=== PATIENT | male | born 1960 ===

== ENCOUNTER 2018-01-07 12:11 | Observation (INO) | payer SELFPAY ==
[2018-01-07] MEDS ORDERED: ASPIRIN 81 MG TABLET, CHEWABLE PO ONE (13:08)
--- NOTE | 2018-01-07 13:09 | ER Document Report ---
ED Medical Screen (RME) - General Chief Complaint: Chest Pain Stated Complaint: CHEST PAIN Time Seen by Provider: 01/07/18 13:05 - HPI Notes: 01/07/18 13:09 Patient is a 57-year-old male that presents to the emergency department for chief complaint of chest pain. Patient reports right-sided chest pain that started this morning. The pain is sharp and nonradiating. Worse with deep inspiration. He has a right-sided PICC line and is receiving antibiotics for a foot infection for the last 2 weeks. ROS: GENERAL: Denies fever of chills CV: chest pain PHYSICAL EXAMINATION: GENERAL: Well-appearing, well-nourished and in no acute distress. HEAD: Atraumatic, normocephalic. EYES: Pupils equal round extraocular movements intact, conjunctiva are normal. ENT: Nares patent NECK: Normal range of motion LUNGS: No respiratory distress Musculoskeletal: Normal range of motion NEUROLOGICAL: Normal speech, normal gait. PSYCH: Normal mood, normal affect. MDM: Patient seen and examined for rapid initial assessment. Vital signs reviewed. A comprehensive ED assessment and evaluation of the patient, analysis of test results and completion of the medical decision making process will be conducted by additional ED providers. - Related Data Allergies/Adverse Reactions: No Known Allergies Allergy (Verified 01/07/18 12:20) Past Medical History - Social History Chew tobacco use (# tins/day): No Frequency of alcohol use: None Drug Abuse: None Renal/ Medical History: Denies: Hx Peritoneal Dialysis Physical Exam - Vital signs Vitals: Temp Pulse Resp BP Pulse Ox 98.7 F 81 18 136/73 H 100 01/07/18 12:19 01/07/18 12:19 01/07/18 12:19 01/07/18 12:01/07/18 12:19 Course - Vital Signs Vital signs: Temp Pulse Resp BP Pulse Ox 98.7 F 81 18 136/73 H 100 01/07/18 12:19 01/07/18 12:19 01/07/18 12:19 01/07/18 12:19 01/07/18 12:19 Doctor's Discharge - Discharge Referrals: LOCALMD,NO [Primary Care Provider] - Follow up as needed
[2018-01-07 13:56] LABS: ABSOLUTE BASOPHILS # (AUTO) 0.1 10^3/uL (0.0-0.2); ABSOLUTE EOSINOPHILS # (AUTO) 0.2 10^3/uL (0.0-0.6); ABSOLUTE LYMPHOCYTES (AUTO) 1.5 10^3/uL (0.5-4.7); ABSOLUTE MONOCYTES (AUTO) 0.6 10^3/uL (0.1-1.4); ABSOLUTE NEUT (AUTO) 6.1 10^3/uL (1.7-8.2); BASOPHILS % (AUTO) 0.6 % (0-2); HEMATOCRIT 28.6 % (37.9-51.0); HEMOGLOBIN 9.9 g/dL (13.5-17.0); LYMPHOCYTES % (AUTO) 17.4 % (13-45); MEAN CORPUSCULAR HEMOGLOBIN 28.4 pg (27.0-33.4); MEAN CORPUSCULAR HGB CONC 34.6 g/dL (32.0-36.0); MEAN CORPUSCULAR VOLUME 82 fl (80-97); MONOCYTES % (AUTO) 6.9 % (3-13); PLATELET COUNT 210 10^3/uL (150-450); RED BLOOD COUNT 3.48 10^6/uL (4.35-5.55); RED CELL DISTRIBUTION WIDTH 15.7 % (11.5-14.0); SEGMENTED NEUTROPHILS % (AUTO) 73.1 % (42-78); TOTAL CELLS COUNTED % (AUTO) 100 %; WHITE BLOOD COUNT 8.4 10^3/uL (4.0-10.5)
[2018-01-07 14:14] LABS: ALANINE AMINOTRANSFERASE 19 U/L (21-72); ALBUMIN 3.6 g/dL (3.5-5.0); ALKALINE PHOSPHATASE 98 U/L (38-126); ANION GAP 11 (5-19); ASPARTATE AMINO TRANSFERASE 10 U/L (17-59); BILIRUBIN,DIRECT 0.3 mg/dL (0.0-0.4); BILIRUBIN,TOTAL 0.5 mg/dL (0.2-1.3); BLOOD UREA NITROGEN 15 mg/dL (7-20); CALCIUM 8.9 mg/dL (8.4-10.2); CARBON DIOXIDE 25 mmol/L (22-30); CHLORIDE 102 mmol/L (98-107); GLUCOSE 126 mg/dL (75-110); POTASSIUM 4.5 mmol/L (3.6-5.0); TOTAL PROTEIN 6.5 g/dL (6.3-8.2)
--- NOTE | 2018-01-07 14:28 | RADIOLOGY REPORT (SQ) ---
EXAM DESCRIPTION: CHEST SINGLE VIEW COMPLETED DATE/TIME: 01/07/2018 2:09 pm REASON FOR STUDY: chest pain COMPARISON: CTA chest 01/07/2018 EXAM PARAMETERS: NUMBER OF VIEWS: One view. TECHNIQUE: Single frontal radiographic view of the chest acquired. RADIATION DOSE: NA LIMITATIONS: None. FINDINGS: LUNGS AND PLEURA: Somewhat linear opacification is present bilateral in the lower lobes. MEDIASTINUM AND HILAR STRUCTURES: No masses. Contour normal. HEART AND VASCULAR STRUCTURES: Heart size is borderline. There is no pulmonary edema. BONES: No acute findings. HARDWARE: None in the chest. OTHER: No other significant finding. IMPRESSION: There appears to be subsegmental atelectasis in the lower lobes. Cannot entirely exclud e a right lower lobe pneumonia. TECHNICAL DOCUMENTATION: JOB ID: [id number] [employer]- All Rights Reserved Reading location - IP/workstation name: [email or web address]
--- NOTE | 2018-01-07 14:31 | RADIOLOGY REPORT (SQ) ---
EXAM DESCRIPTION: CTA CHEST COMPLETED DATE/TIME: 01/07/2018 2:01 pm REASON FOR STUDY: chest pain COMPARISON: None. TECHNIQUE: CT scan of the chest performed using helical scanning technique with dynamic intravenous contrast injection. Images reviewed with lung, soft tissue and bone windows. Reconstructed coronal and sagittal MPR images reviewed. Additional 3 dimensional post-processing performed to develop Maximal Intensity Projection images (AZ P). All images stored on PACS. All CT scanners at this facility use dose modulation, iterative reconstruction, and/or weight based d osing when appropriate to reduce radiation dose to as low as reasonably achievable (ALARA). [facility]: Dose Right [facility]: CareDose [facility]: Dose Right [facility]: Teradose 4D [facility]: ViralNinjas CONTRAST TYPE AND DOSE: contrast/concentration: Isovue 350.00 mg/ml; Total Contrast Delivered: 84.0 ml; Total Saline Delivered: 92.0 ml Contrast bolus optimized for the pulmonary arteries. Not diagnostic for the aorta. RENAL FUNCTION: Creatinine - 0.64 BUN=16 RADIATION DOSE: CT Rad equipment meets quality standard of care and radiation dose reduction techniq ues were employed. CTDIvol: 27.7 - 33.1 mGy. DLP: 972 mGy-cm. . LIMITATIONS: None. FINDINGS: LUNGS AND PLEURA: Bilateral lower lobes, slightly more so on the right and right middle l obe airspace disease. Bilateral small right pleural effusion. No masses, infiltrates, or pneumothor ax. No pleural effusions or pleural calcifications. AORTA AND GREAT VESSELS: Inadequate opacification of the aorta and great vessel. The right brachioc ephalic and left common carotid artery share a common origin off of the aortic arch, normal anatomic variant. HEART: No pericardial effusion. No significant coronary artery calcifications. PULMONARY ARTERIES: Fairly extensive thrombus within the right descending pulmonary artery with occl usion identified. Occlusive thrombi in the right middle and lower lobe segmental/subsegmental arteri es. No evidence of saddle pulmonary emboli. HILAR AND MEDIASTINAL STRUCTURES: No identified masses or abnormal nodes. HARDWARE: None in the chest. UPPER ABDOMEN: Hepatosplenomegaly is suggested. Mild nodular thickening of the left adrenal gland. Limited exam. THYROID AND OTHER SOFT TISSUES: No masses. No adenopathy. BONES: No acute or significant finding. 3D MIPS: Confirm above findings. OTHER: No other significant finding. IMPRESSION: 1. Fairly extensive occlusive thrombus within the right descending pulmonary artery, ri ght middle lobe and right middle lobe segmental/subsegmental arteries. These findings represent fair ly extensive pulmonary emboli. 2. Bilateral lower lobe and right middle lobe airspace disease may represent infiltrate/atelectasis. Small right pleural effusion. 3. Additional findings as above. COMMENT: 1. The results of this examination were discussed with emergency department provider on 01/2018 at 14:12 hours. Quality ID # [id number]: Final reports with documentation of one or more dose reduction techniques (e.g., Au tomated exposure control, adjustment of the mA and/or kV according to patient size, use of iterative reconstruction technique) TECHNICAL DOCUMENTATION: JOB ID: [id number] [employer]- All Rights Reserved Reading location - IP/workstation name: [email or web address]
--- NOTE | 2018-01-07 14:44 | ER Document Report ---
ED General - General Chief Complaint: Chest Pain Stated Complaint: CHEST PAIN Time Seen by Provider: 01/07/18 13:05 - HPI Patient complains to provider of: Right-sided chest pain Notes: Patient states recently to the area approximately 3 months ago has history of diabetes hypertension diabetes is poorly controlled recently had surgery at [facility] with application of his toe currently has a wound VAC in place on the right foot. Patient states increased chest pain on the right side earlier this morning with difficulty taking a full deep breath. Patient denies any fevers chills nausea vomiting diarrhea denies any left-sided chest pain. Denies a history of PE DVT in the past. Patient currently has a PICC line in his right arm that he is receiving antibiotics for the foot infection - Related Data Allergies/Adverse Reactions: No Known Allergies Allergy (Verified 01/07/18 12:20) Past Medical History - Social History Smoking Status: Never Smoker Chew tobacco use (# tins/day): No Frequency of alcohol use: None Drug Abuse: None Family History: Reviewed & Not Pertinent Patient has suicidal ideation: No Patient has homicidal ideation: No Renal/ Medical History: Denies: Hx Peritoneal Dialysis Review of Systems - Review of Systems Constitutional: No symptoms reported EENT: No symptoms reported Cardiovascular: Chest pain - Right-sided chest pain Respiratory: No symptoms reported Gastrointestinal: No symptoms reported Genitourinary: No symptoms reported Male Genitourinary: No symptoms reported Musculoskeletal: No symptoms reported, Other Skin: No symptoms reported Hematologic/Lymphatic: No symptoms reported Neurological/Psychological: No symptoms reported -: Yes All other systems reviewed and negative Physical Exam - Vital signs Vitals: Temp Pulse Resp BP Pulse Ox 98.7 F 81 18 136/73 H 100 01/07/18 12:19 01/07/18 12:19 01/07/18 12:19 01/07/18 12:19 01/07/18 12:19 Interpretation: Normal - General General appearance: Appears well, Alert - HEENT Head: Normocephalic, Atraumatic Eyes: Normal Pupils: PERRL - Respiratory Respiratory status: No respiratory distress Chest status: Nontender Breath sounds: Normal Chest palpation: Normal - Cardiovascular Rhythm: Regular Heart sounds: Normal auscultation Murmur: No - Abdominal Inspection: Normal Distension: No distension Bowel sounds: Normal Tenderness: Nontender Organomegaly: No organomegaly - Back Back: Normal, Nontender - Extremities General upper extremity: Normal inspection, Nontender, Normal color, Normal ROM , Normal temperature General lower extremity: Normal color, Normal ROM, Normal temperature, Normal weight bearing. No: Normal inspection - Patient's right foot is currently managed with a wound VAC in place. There is swelling of the right leg greater on the right and left with 1-2+ pitting edema, Alma Rosa's sign - Neurological Neuro grossly intact: Yes Cognition: Normal Orientation: AAOx4 Jami Coma Scale Eye Opening: Spontaneous Jami Coma Scale Verbal: Oriented Jami Coma Scale Motor: Obeys Commands Jami Coma Scale Total: 15 Speech: Normal Motor strength normal: LUE, RUE, LLE, RLE Sensory: Normal - Psychological Associated symptoms: Normal affect, Normal mood - Skin Skin Temperature: Warm Skin Moisture: Dry Skin Color: Normal Course - Re-evaluation Re-evalutation: 01/07/18 21:25 CAT scan shows right-sided pulmonary embolism patient otherwise has stable vital signs patient was given low-dose Lovenox course was discussed with hospitalist will admit for further evaluation. - Vital Signs Vital signs: Temp Pulse Resp BP Pulse Ox 98.7 F 81 10 L 128/114 H 97 01/07/18 12:19 01/07/18 12:19 01/07/18 19:01 01/07/18 19:00 01/07/18 19:01 - Laboratory Result Diagrams: 01/07/18 13:20 01/07/18 13:20 Laboratory results interpreted by me: 01/07/18 01/07/18 01/07/18 13:20 13:20 13:20 RBC 3.48 L Hgb 9.9 L Hct 28.6 L RDW 15.7 H APTT 39.3 H Glucose 126 H AST 10 L ALT 19 L Critical Care Note - Critical Care Note Total time excluding time spent on procedures (mins): 35 Comments: Multiple evaluation patient with PE Discharge - Discharge Clinical Impression: Pulmonary embolism Qualifiers: Pulmonary embolism type: other Chronicity: acute Acute cor pulmonale presence: without acute cor pulmonale Qualified Code(s): I26.99 - Other pulmonary embolism without acute cor pulmonale Osteomyelitis Qualifiers: Osteomyelitis type: unspecified type Osteomyelitis location: foot Laterality: right Qualified Code(s): M86.9 - Osteomyelitis, unspecified Condition: Good Disposition: ADMITTED INPATIENT Admitting Provider: Michael García/Tyron Unit Admitted: IMCU
[2018-01-07] MEDS: ENOXAPARIN SODIUM INJ 120 MG/0.8 ML DISP.SYRIN SUBCUT SCH ×2 (15:47→22:19)
[2018-01-07 15:54] LABS: INTERNATIONAL RATION (INR) 0.98; PROTHROMBIN TIME 13.5 SEC (11.4-15.4)
[2018-01-07 15:55] LABS: PARTIAL THROMBOPLASTIN TIME 39.3 SEC (23.5-35.8)
[2018-01-07] MEDS ORDERED: ACETAMINOPHEN 325 MG TABLET PO PRN (16:45)
[2018-01-07] MEDS ORDERED: MORPHINE SULFATE 10 MG/ML INJ IV PRN (16:45)
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
[2018-01-07] MEDS ORDERED: MORPHINE SULFATE 10 MG/ML INJ ONE (22:10)
[2018-01-07] MEDS: MORPHINE SULFATE 10 MG/ML INJ IV PRN (22:18)
[2018-01-07] MEDS: FAMOTIDINE 20 MG TABLET PO SCH (22:19)
[2018-01-07] MEDS ORDERED: CEFAZOLIN 2 GM/D5W RTU 2 GM/50 ML RTUPB IV ONE ×2 (22:57→23:43)
--- NOTE | 2018-01-07 23:02 | EKG REPORT ---
SEVERITY:- NORMAL ECG - SINUS RHYTHM : Confirmed by: Gwyn Bergman 07-Jan-2018 23:01:33
[2018-01-07] MEDS: CEFAZOLIN 2 GM/D5W RTU 2 GM/50 ML RTUPB IV SCH (23:39)
[2018-01-08] MEDS: MORPHINE SULFATE 10 MG/ML INJ IV PRN (04:10)
[2018-01-08 05:47] LABS: ABSOLUTE BASOPHILS # (AUTO) 0.1 10^3/uL (0.0-0.2); ABSOLUTE EOSINOPHILS # (AUTO) 0.2 10^3/uL (0.0-0.6); ABSOLUTE LYMPHOCYTES (AUTO) 1.6 10^3/uL (0.5-4.7); ABSOLUTE MONOCYTES (AUTO) 0.5 10^3/uL (0.1-1.4); ABSOLUTE NEUT (AUTO) 5.5 10^3/uL (1.7-8.2); BASOPHILS % (AUTO) 0.6 % (0-2); EOSINOPHILS % (AUTO) 2.2 % (0-6); HEMATOCRIT 25.6 % (37.9-51.0); LYMPHOCYTES % (AUTO) 20.6 % (13-45); MEAN CORPUSCULAR HEMOGLOBIN 28.6 pg (27.0-33.4); MEAN CORPUSCULAR HGB CONC 35.3 g/dL (32.0-36.0); MEAN CORPUSCULAR VOLUME 81 fl (80-97); MONOCYTES % (AUTO) 6.4 % (3-13); PLATELET COUNT 200 10^3/uL (150-450); RED BLOOD COUNT 3.16 10^6/uL (4.35-5.55); RED CELL DISTRIBUTION WIDTH 15.6 % (11.5-14.0); SEGMENTED NEUTROPHILS % (AUTO) 70.2 % (42-78); TOTAL CELLS COUNTED % (AUTO) 100 %; WHITE BLOOD COUNT 7.9 10^3/uL (4.0-10.5)
[2018-01-08] MEDS ORDERED: HYDROMORPHONE HCL INJ/PF 2 MG/ML AMPULE IV ONE (06:00)
[2018-01-08 06:04] LABS: ALANINE AMINOTRANSFERASE 19 U/L (21-72); ALBUMIN 3.1 g/dL (3.5-5.0); ALKALINE PHOSPHATASE 90 U/L (38-126); ANION GAP 8 (5-19); ASPARTATE AMINO TRANSFERASE 9 U/L (17-59); BILIRUBIN,DIRECT 0.2 mg/dL (0.0-0.4); BILIRUBIN,TOTAL 0.5 mg/dL (0.2-1.3); BLOOD UREA NITROGEN 12 mg/dL (7-20); CALCIUM 8.6 mg/dL (8.4-10.2); CARBON DIOXIDE 27 mmol/L (22-30); CHLORIDE 103 mmol/L (98-107); GLUCOSE 119 mg/dL (75-110); POTASSIUM 4.2 mmol/L (3.6-5.0); SODIUM 137.9 mmol/L (137-145); TOTAL PROTEIN 5.7 g/dL (6.3-8.2)
[2018-01-08 06:06] LABS: APPEARANCE,URINE CLEAR; BILIRUBIN,URINE NEGATIVE (NEGATIVE); COLOR,URINE YELLOW; GLUCOSE, URINE 50 mg/dL (NEGATIVE); KETONES,URINE NEGATIVE (NEGATIVE); LEUKOCYTE ESTERASE,URINE NEGATIVE (NEGATIVE); NITRITE,URINE NEGATIVE (NEGATIVE); PROTEIN,URINE NEGATIVE (NEGATIVE); URINE SPECIFIC GRAVITY 1.016; UROBILINOGEN,URINE NEGATIVE mg/dL (<2.0)
[2018-01-08] MEDS: CEFAZOLIN 2 GM/D5W RTU 2 GM/50 ML RTUPB IV SCH (06:32)
[2018-01-08] MEDS ORDERED: OXYCODONE HCL IR 5 MG TABLET PO PRN ×2 (08:33→10:15)
[2018-01-08 08:50] VITALS: BP 136/80
[2018-01-08] MEDS: FAMOTIDINE 20 MG TABLET PO SCH (09:05)
[2018-01-08] MEDS: ENOXAPARIN SODIUM INJ 120 MG/0.8 ML DISP.SYRIN SUBCUT SCH (09:06)
[2018-01-08] MEDS ORDERED: GABAPENTIN 400 MG CAPSULE PO SCH (10:00)
[2018-01-08] MEDS ORDERED: OXYCODONE HCL IR 5 MG TABLET PO ONE (10:15)
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
== END 2018-01-08 11:35 | disposition home health service (06) ==
LOC: ER 12:11 → EH 16:29 → INTOOBSV 16:29 → 3S 21:54
PROVIDERS: ADMIT Internal Medicine; ATTEND Internal Medicine
DX: I26.99 Other pulmonary embolism without acute cor pulmonale (principal); G89.29 Other chronic pain; M54.9 Dorsalgia, unspecified; T14.90XS Injury, unspecified, sequela; X58.XXXS Exposure to other specified factors, sequela; E11.59 Type 2 diabetes mellitus with other circulatory complications; T87.43 Infection of amputation stump, right lower extremity; R60.0 Localized edema; Z95.828 Presence of other vascular implants and grafts; Z74.01 Bed confinement status; Z79.899 Other long term (current) drug therapy; Z90.49 Acquired absence of other specified parts of digestive tract; Z96.643 Presence of artificial hip joint, bilateral
CPT/HCPCS: 93005; 99291; 36415 ×2; 82962 ×2; 85025 ×2; 85610; 85730; 80053 ×2; 81001; 84484; 83036; 83880 ×2; 71045; 71275; 93010; J1650 ×2; J2270 ×2; J1170; J0690 ×2